=== PATIENT | male | born 1950 | race Caucasian/White ===

== ENCOUNTER 2019-08-16 21:34 | Inpatient (IN) ==
[2019-08-16 22:26] LABS: Basophils % 0.4 % (0.0-0.8); Eosinophils % 0.1 % (0.00-10.9); Hematocrit 29.1 VOL% (42.0-52.0); Hemoglobin 9.8 GM/DL (14.0-18.0); Immature Granulocytes % 0.6 %; Immature Granulocytes Absolute 0.07 #; Lymphocytes # 1.8 10*3/uL (1.4-4.0); Lymphocytes % 15.8 % (21.2-54.2); Mean Corpuscular HGB Conc 33.7 GM/DL (32-36); Mean Corpuscular Volume 86.6 FL (87-102); Monocytes % 5.1 % (1.7-12.7); Platelet Count 292 T/CUMM (130-400); Red Blood Count 3.36 MC/CUMM (3.8-5.5); Red Cell Distribution Width 12.8 % (9.3-17.3); White Blood Count 11.3 T/CUMM (4-12)
[2019-08-16] MEDS ORDERED: PANTOPRAZOLE INJ 80 MG in SODIUM CHLORIDE 0.9% 100 ML IV ONE (22:28)
[2019-08-16 22:37] LABS: PT Patient Result 10.8 SECS (9.6-12.2)
[2019-08-16 22:52] LABS: Alanine Aminotransferase 36 U/L (16-61); Albumin 3.1 G/DL (3.4-5.0); Alkaline Phosphatase 48 U/L (45-117); Aspartate Amino Transferase 12 U/L (0-37); Bilirubin,Total < 0.39 MG/DL (0.2-1.0); Blood Urea Nitrogen 43 MG/DL (7-18); Calcium 7.7 MG/DL (8.5-10.1); Estimated Glom Filtration Rate 108 ML/MIN; Glucose 174 MG/DL (74-106); Osmolality,Calculated 280.4 MOS/KG (273-304); Total Protein 6.1 G/DL (6.4-8.3)
[2019-08-16] MEDS ORDERED: ONDANSETRON 4 MG/2 ML VIAL IV PRN (23:54)
[2019-08-17] MEDS ORDERED: SODIUM CHLORIDE 0.9% 1,000 ML IV PRN (00:08)
[2019-08-17] MEDS: SODIUM CHLORIDE 0.9% 1,000 ML IV SCH (02:03)
[2019-08-17] MEDS: PANTOPRAZOLE INJ 200 MG in SODIUM CHLORIDE 0.9% 250 ML IV SCH (03:57)
[2019-08-17] MEDS: LEVOTHYROXINE 50 MCG TABLET PO SCH (05:30)
[2019-08-17 05:40] LABS: Hematocrit 24.5 VOL% (42.0-52.0); Hemoglobin 8.2 GM/DL (14.0-18.0)
[2019-08-17] MEDS ORDERED: METOPROLOL SUCCINATE XL 25 MG TABLET PO SCH (09:00)
[2019-08-17] MEDS ORDERED: COENZYME Q10 100 MG CAPSULE PO SCH (09:00)
[2019-08-17] MEDS: LOSARTAN 50 MG TABLET PO SCH (09:50)
[2019-08-17 12:18] LABS: Hematocrit 21.6 VOL% (42.0-52.0); Hemoglobin 7.3 GM/DL (14.0-18.0)
[2019-08-17] MEDS: SUCRALFATE 1 GM/10 ML UDCUP PO SCH ×2 (17:12→20:15)
[2019-08-17 20:05] LABS: Basophils % 0.4 % (0.0-0.8); Eosinophils # 0.1 10*3/uL (0.0-0.87); Eosinophils % 0.9 % (0.00-10.9); Hematocrit 25.2 VOL% (42.0-52.0); Hemoglobin 8.6 GM/DL (14.0-18.0); Immature Granulocytes % 0.7 %; Immature Granulocytes Absolute 0.05 #; Lymphocytes # 2.7 10*3/uL (1.4-4.0); Lymphocytes % 36.1 % (21.2-54.2); Mean Corpuscular HGB Conc 34.1 GM/DL (32-36); Mean Corpuscular Volume 84.8 FL (87-102); Mean Platelet Volume 8.9 FL (9.6-12.0); Monocytes % 7.1 % (1.7-12.7); Neutrophils % 54.8 % (38.7-73.9); Platelet Count 219 T/CUMM (130-400); Red Blood Count 2.97 MC/CUMM (3.8-5.5); Red Cell Distribution Width 13.7 % (9.3-17.3); White Blood Count 7.6 T/CUMM (4-12)
[2019-08-17] MEDS: COENZYME Q10 100 MG CAPSULE PO SCH (20:14)
[2019-08-17] MEDS: METOPROLOL SUCCINATE XL 25 MG TABLET PO SCH (20:14)
[2019-08-17] MEDS: SIMVASTATIN 20 MG TABLET PO SCH (20:14)
[2019-08-18 01:13] LABS: Hematocrit 22.3 VOL% (42.0-52.0); Hemoglobin 7.7 GM/DL (14.0-18.0)
[2019-08-18] MEDS: PANTOPRAZOLE INJ 200 MG in SODIUM CHLORIDE 0.9% 250 ML IV SCH (05:06)
[2019-08-18] MEDS: LEVOTHYROXINE 50 MCG TABLET PO SCH (06:03)
[2019-08-18] MEDS: SUCRALFATE 1 GM/10 ML UDCUP PO SCH ×4 (08:25→20:59)
[2019-08-18] MEDS: LOSARTAN 50 MG TABLET PO SCH (08:25)
[2019-08-18] MEDS: COENZYME Q10 100 MG CAPSULE PO SCH ×2 (08:25→21:09)
[2019-08-18 09:21] LABS: Hematocrit 26.1 VOL% (42.0-52.0)
[2019-08-18] MEDS: SODIUM CHLORIDE 0.9% 1,000 ML IV SCH ×2 (14:01→23:00)
[2019-08-18 15:41] LABS: Basophils # 0.1 10*3/uL (0.0-0.2); Basophils % 0.8 % (0.0-0.8); Eosinophils # 0.1 10*3/uL (0.0-0.87); Eosinophils % 1.3 % (0.00-10.9); Hematocrit 25.9 VOL% (42.0-52.0); Hemoglobin 8.6 GM/DL (14.0-18.0); Immature Granulocytes % 0.6 %; Immature Granulocytes Absolute 0.04 #; Lymphocytes # 2.4 10*3/uL (1.4-4.0); Lymphocytes % 37.5 % (21.2-54.2); Mean Corpuscular HGB Conc 33.2 GM/DL (32-36); Mean Corpuscular Volume 86.3 FL (87-102); Mean Platelet Volume 9.2 FL (9.6-12.0); Monocytes % 6.9 % (1.7-12.7); Neutrophils % 52.9 % (38.7-73.9); Platelet Count 210 T/CUMM (130-400); Red Cell Distribution Width 14.5 % (9.3-17.3); White Blood Count 6.4 T/CUMM (4-12)
[2019-08-18] MEDS: SIMVASTATIN 20 MG TABLET PO SCH (20:58)
[2019-08-18] MEDS: METOPROLOL SUCCINATE XL 25 MG TABLET PO SCH (20:59)
[2019-08-18] MEDS: PANTOPRAZOLE 40 MG VIAL IV SCH (20:59)
[2019-08-18] MEDS: TAMSULOSIN 0.4 MG CAPSULE PO SCH (20:59)
[2019-08-19 04:31] LABS: Basophils # 0.1 10*3/uL (0.0-0.2); Basophils % 0.8 % (0.0-0.8); Eosinophils # 0.3 10*3/uL (0.0-0.87); Eosinophils % 3.8 % (0.00-10.9); Hemoglobin 8.1 GM/DL (14.0-18.0); Immature Granulocytes % 0.6 %; Immature Granulocytes Absolute 0.04 #; Lymphocytes # 2.5 10*3/uL (1.4-4.0); Lymphocytes % 38.6 % (21.2-54.2); Mean Corpuscular HGB Conc 33.8 GM/DL (32-36); Mean Platelet Volume 9.5 FL (9.6-12.0); Monocytes % 7.1 % (1.7-12.7); Neutrophils % 49.1 % (38.7-73.9); Platelet Count 193 T/CUMM (130-400); Red Blood Count 2.79 MC/CUMM (3.8-5.5); Red Cell Distribution Width 14.7 % (9.3-17.3); White Blood Count 6.6 T/CUMM (4-12)
[2019-08-19 04:41] LABS: Calcium 7.6 MG/DL (8.5-10.1); Osmolality,Calculated 281.1 MOS/KG (273-304)
[2019-08-19] MEDS: LEVOTHYROXINE 50 MCG TABLET PO SCH (05:18)
[2019-08-19] MEDS: PANTOPRAZOLE 40 MG VIAL IV SCH ×2 (08:47→20:29)
[2019-08-19] MEDS: LOSARTAN 50 MG TABLET PO SCH (08:47)
[2019-08-19] MEDS: SUCRALFATE 1 GM/10 ML UDCUP PO SCH ×4 (08:47→20:28)
[2019-08-19] MEDS: SODIUM CHLORIDE 0.9% 1,000 ML IV SCH ×2 (10:25→20:35)
[2019-08-19] MEDS ORDERED: DOCUSATE SODIUM 100 MG CAPSULE PO PRN (13:54)
[2019-08-19] MEDS: COENZYME Q10 100 MG CAPSULE PO SCH (20:28)
[2019-08-19] MEDS: METOPROLOL SUCCINATE XL 25 MG TABLET PO SCH (20:28)
[2019-08-19] MEDS: SIMVASTATIN 20 MG TABLET PO SCH (20:28)
[2019-08-19] MEDS: TAMSULOSIN 0.4 MG CAPSULE PO SCH (20:28)
[2019-08-20 05:02] LABS: Basophils % 0.7 % (0.0-0.8); Eosinophils # 0.2 10*3/uL (0.0-0.87); Eosinophils % 3.5 % (0.00-10.9); Hematocrit 23.1 VOL% (42.0-52.0); Hemoglobin 7.7 GM/DL (14.0-18.0); Immature Granulocytes % 0.5 %; Immature Granulocytes Absolute 0.03 #; Lymphocytes # 1.8 10*3/uL (1.4-4.0); Mean Corpuscular HGB Conc 33.3 GM/DL (32-36); Mean Corpuscular Volume 87.2 FL (87-102); Mean Platelet Volume 9.7 FL (9.6-12.0); Monocytes % 7.3 % (1.7-12.7); Platelet Count 199 T/CUMM (130-400); Red Blood Count 2.65 MC/CUMM (3.8-5.5); Red Cell Distribution Width 14.7 % (9.3-17.3); White Blood Count 5.5 T/CUMM (4-12)
[2019-08-20 05:26] LABS: Calcium 7.5 MG/DL (8.5-10.1); Osmolality,Calculated 284.8 MOS/KG (273-304)
[2019-08-20] MEDS: LEVOTHYROXINE 50 MCG TABLET PO SCH (07:05)
[2019-08-20] MEDS ORDERED: POTASSIUM CHLORIDE 20 MEQ/15 ML UDCUP PO ONE (08:14)
[2019-08-20] MEDS ORDERED: SODIUM CHLORIDE 0.9% 1,000 ML IV PRN (08:19)
[2019-08-20] MEDS: LOSARTAN 50 MG TABLET PO SCH (08:49)
[2019-08-20] MEDS: PANTOPRAZOLE 40 MG VIAL IV SCH ×2 (08:58→20:50)
[2019-08-20] MEDS: SUCRALFATE 1 GM/10 ML UDCUP PO SCH ×4 (08:59→20:50)
[2019-08-20] MEDS ORDERED: propofoL 200 MG/20 ML VIAL IV ONE (09:00)
[2019-08-20] MEDS ORDERED: ETOMIDATE 20 MG/10 ML VIAL IV ONE (09:00)
[2019-08-20] MEDS ORDERED: LIDOCAINE 2% 5 ML VIAL ONE (09:00)
[2019-08-20] MEDS: SODIUM CHLORIDE 0.9% 1,000 ML IV SCH ×3 (17:15→20:57)
[2019-08-20 18:45] LABS: Hematocrit 32.2 VOL% (42.0-52.0)
[2019-08-20 18:46] LABS: Hemoglobin 10.8 GM/DL (14.0-18.0)
[2019-08-20] MEDS: SIMVASTATIN 20 MG TABLET PO SCH (20:49)
[2019-08-20] MEDS: TAMSULOSIN 0.4 MG CAPSULE PO SCH (20:49)
[2019-08-20] MEDS: POTASSIUM CHLORIDE 20 MEQ TABLET PO PRN ×2 (20:49→23:58)
[2019-08-20] MEDS: METOPROLOL SUCCINATE XL 25 MG TABLET PO SCH (20:49)
[2019-08-20] MEDS: COENZYME Q10 100 MG CAPSULE PO SCH (20:49)
[2019-08-21] MEDS: POTASSIUM CHLORIDE 20 MEQ TABLET PO PRN (01:17)
[2019-08-21 05:46] LABS: Basophils % 0.7 % (0.0-0.8); Eosinophils # 0.3 10*3/uL (0.0-0.87); Eosinophils % 5.2 % (0.00-10.9); Hematocrit 29.2 VOL% (42.0-52.0); Hemoglobin 9.7 GM/DL (14.0-18.0); Immature Granulocytes % 0.3 %; Immature Granulocytes Absolute 0.02 #; Lymphocytes # 2.3 10*3/uL (1.4-4.0); Lymphocytes % 39.1 % (21.2-54.2); Mean Corpuscular HGB Conc 33.2 GM/DL (32-36); Mean Corpuscular Volume 87.2 FL (87-102); Mean Platelet Volume 9.4 FL (9.6-12.0); Monocytes % 8.7 % (1.7-12.7); Platelet Count 206 T/CUMM (130-400); Red Blood Count 3.35 MC/CUMM (3.8-5.5); Red Cell Distribution Width 15.9 % (9.3-17.3); White Blood Count 5.8 T/CUMM (4-12)
[2019-08-21] MEDS: LEVOTHYROXINE 50 MCG TABLET PO SCH (06:26)
[2019-08-21] MEDS: SODIUM CHLORIDE 0.9% 1,000 ML IV SCH (06:27)
[2019-08-21 08:05] VITALS: BP 137/70
[2019-08-21] MEDS: PANTOPRAZOLE 40 MG VIAL IV SCH (08:34)
[2019-08-21] MEDS: LOSARTAN 50 MG TABLET PO SCH (08:34)
[2019-08-21] MEDS: SUCRALFATE 1 GM/10 ML UDCUP PO SCH ×2 (08:40→12:20)
== END 2019-08-21 11:40 | disposition home or self-care (01) | DRG 378 ==
LOC: N.ED 21:34 → N.EDINP 23:54 → SUATTDRO 23:54 → N.2E 08-17 01:09
PROVIDERS: ADMIT Family Medicine; ATTEND Internal Medicine